=== PATIENT | female | born 1935 | race Caucasian/White ===

== ENCOUNTER 2017-10-08 21:15 | Inpatient (IN) | payer MEDICARE ==
[2017-10-08 22:05] LABS: CHLORIDE,CL 101 mEq/L (98-106); SODIUM,NA 134 mEq/L (136-145)
--- NOTE | 2017-10-08 23:19 | EDM.PDOC ---
ED HPI GENERAL MEDICAL PROBLEM - General Chief Complaint: General Stated Complaint: not feeling well Time Seen by Provider: 10/08/17 21:45 Source of Information: Reports: Patient, Family History Limitations: Reports: No Limitations - History of Present Illness INITIAL COMMENTS - FREE TEXT/NARRATIVE: Naila is a pleasant 82 year old female with PMH of hypertension and renal cancer , who presents to the ED with c/o "just not feeling well." She reports that starting on Wednesday evening, she started having worsening neck pain. She reports she has bad arthritis and initially she just attributed it to that. She reports that the days following she started to feel just achy all over. She reports that for about the past month she has had a very decreased appetite. She reports this started after she started being treated for a UTI. She reports she had a hard time tolerating the antibiotic and since then hasn't had much of an appetite. She also reports she has pain in her neck and intermittent dizziness. She has also noticed that her gait is a little "off balance as well. " She reports she has a hard time "walking straight." She denies any urinary frequency, urgency or dysuria. Denies any abdominal pain, vomiting, diarrhea, constipation. Has had some intermittent nausea, but nothing significant. She just reports foods don't appeal to her. She reports she has lost weight, but is unsure of how much. She denies any chest pain. Initially denies any shortness of breath at rest. Was pointed out to her that she seems to be winded talking and she then goes on to state that maybe she has been a little more short of breath than normal. Reports occasional nonproductive cough. Has had some chills. Denies any headache, fever, weakness. Onset Date: 10/05/17 Duration: Getting Worse Location: Reports: Generalized Associated Symptoms: Reports: Cough, Fever/Chills (chills), Loss of Appetite, Nausea/Vomiting (nausea), Shortness of Breath, Weakness. Denies: Confusion, Chest Pain, cough w sputum, Diaphoresis, Headaches, Malaise, Rash, Seizure, Syncope Generalized Pain Score (Numeric/FACES): 4 - Related Data Allergies Allergy/AdvReac Type Severity Reaction Status Date / Time Penicillins Allergy Cannot Verified 10/08/17 21:21 Remember Home Meds: Home Meds Lysine 1,000 mg PO DAILY 10/08/17 [History] Ramipril 10 mg PO DAILY 10/08/17 [History] Sertraline [Zoloft] 50 mg PO BEDTIME 10/08/17 [History] Spironolactone [Aldactone] 25 mg PO DAILY 10/08/17 [History] Past Medical History HEENT History: Reports: Cataract Cardiovascular History: Reports: Hypertension Oncologic (Cancer) History: Reports: Renal - Past Surgical History HEENT Surgical History: Reports: Cataract Surgery GI Surgical History: Reports: Appendectomy, Colonoscopy Social & Family History - Tobacco Use Smoking Status *Q: Never Smoker Second Hand Smoke Exposure: No ED ROS GENERAL - Review of Systems Review Of Systems: ROS reveals no pertinent complaints other than HPI. Constitutional: Reports: Fever, Chills, Weakness, Fatigue, Decreased Appetite, Weight Loss HEENT: Reports: No Symptoms Respiratory: Reports: Shortness of Breath, Cough. Denies: Wheezing, Pleuritic Chest Pain, Sputum, Hemoptysis Cardiovascular: Reports: Dyspnea on Exertion, Lightheadedness. Denies: Chest Pain, Edema, Orthopnea, Syncope Endocrine: Reports: Fatigue GI/Abdominal: Reports: Decreased Appetite, Nausea. Denies: Abdominal Pain, Black Stool, Bloody Stool, Constipation, Hematemesis, Hematochezia, Melena, Vomiting : Denies: Dysuria, Flank Pain, Frequency, Hematuria, Urgency Musculoskeletal: Reports: Neck Pain Skin: Reports: No Symptoms Neurological: Reports: Dizziness, Difficulty Walking, Weakness, Gait Disturbance. Denies: Confusion, Headache, Numbness, Syncope, Tingling Psychiatric: Reports: No Symptoms Hematologic/Lymphatic: Reports: No Symptoms Immunologic: Reports: No Symptoms ED EXAM, GENERAL - Physical Exam Exam: See Below Exam Limited By: No Limitations General Appearance: Alert, WD/WN, No Apparent Distress Eye Exam: Bilateral Eye: EOMI, Normal Fundi, Normal Inspection, PERRL Ears: Normal External Exam, Normal Canal, Hearing Grossly Normal, Normal TMs Nose: Normal Inspection, Normal Mucosa, No Blood Throat/Mouth: Normal Inspection, Normal Lips, Normal Teeth, Normal Gums, Normal Oropharynx, Normal Voice, No Airway Compromise Head: Atraumatic, Normocephalic Neck: Normal Inspection, Supple, Non-Tender, Full Range of Motion Respiratory/Chest: No Respiratory Distress, Lungs Clear, Normal Breath Sounds, No Accessory Muscle Use, Chest Non-Tender Cardiovascular: Normal Peripheral Pulses, Regular Rate, Rhythm, No Edema, No Gallop, No JVD, No Murmur, No Rub GI/Abdominal: Normal Bowel Sounds, Soft, Non-Tender, No Organomegaly, No Distention, No Abnormal Bruit, No Mass Back Exam: Normal Inspection, Full Range of Motion. No: CVA Tenderness (L), CVA Tenderness (R), Vertebral Tenderness Extremities: Normal Inspection, Normal Range of Motion, Non-Tender, Normal Capillary Refill, No Pedal Edema Neurological: Alert, Oriented, CN II-XII Intact, Normal Cognition, Normal Gait, Normal Reflexes, No Motor/Sensory Deficits Psychiatric: Normal Affect, Normal Mood Skin Exam: Warm, Dry, Intact, Normal Color, No Rash Lymphatic: No Adenopathy Course - Vital Signs Last Recorded V/S: Last Vital Signs Temp 97.5 F 10/09/17 03:27 Pulse 78 10/09/17 03:27 Resp 16 10/09/17 03:27 BP 136/75 10/09/17 03:27 Pulse Ox 98 10/09/17 03:27 - Orders/Labs/Meds Orders: Active Orders 24 hr Category Date Time Status Chest 2V [CR] Stat Exams 10/08/17 21:29 Taken Head wo Cont [CT] Stat Exams 10/08/17 22:17 Taken CULTURE BLOOD [BC] Stat Lab 10/08/17 21:35 Received CULTURE BLOOD [BC] Stat Lab 10/08/17 21:40 Received CULTURE URINE [RM] Stat Lab 10/08/17 22:04 Received Medication Orders Acetaminophen (Tylenol) 650 mg PO Q4H PRN PRN Reason: Pain (Mild 1-3)/fever Albuterol/Ipratropium (Duoneb 3.0-0.5 Mg/3 Ml) 3 ml NEB Q4H PRN PRN Reason: Shortness Of Breath/wheezing Ceftriaxone Sodium (Rocephin) 1 gm IVPUSH Q24H [facility] Last Admin: 10/09/17 00:26 Dose: 1 gm Enoxaparin Sodium (Lovenox) 30 mg SUBCUT Q24H [facility] Last Admin: 10/09/17 00:25 Dose: 30 mg Azithromycin 500 mg/ Sodium (Chloride) 250 mls @ 250 mls/hr IV Q24H [facility] Last Admin: 10/09/17 00:25 Dose: 250 mls/hr Lactated Ringer's (Ringers, Lactated) 1,000 mls @ 125 mls/hr IV ASDIRECTED [facility] Last Admin: 10/09/17 00:26 Dose: 125 mls/hr Magnesium Hydroxide (Milk Of Magnesia) 30 ml PO Q12H PRN PRN Reason: Constipation Temazepam (Restoril) 15 mg PO BEDTIME PRN PRN Reason: Sleep Labs: Laboratory Tests 10/08/17 10/08/17 10/08/17 Range/Units 21:35 21:35 21:35 WBC 13.8 H (5.0-10.0) 10^3/uL RBC 2.91 L (4.00-5.50) 10^6/uL Hgb 9.8 L (12.0-16.0) g/dL Hct 29.4 L (37.0-47.0) % MCV 101.0 H (82.0-94.0) fL MCH 33.7 H (27.0-32.0) pg MCHC 33.3 (33.0-38.0) g/dL RDW Coeff of Karina 13.0 (11.0-15.0) % Plt Count 130 L (150-400) 10^3/uL Neut % (Auto) 80.0 (35-85) % Lymph % (Auto) 9.7 L (10-55) % [place] % (Auto) 10.0 (0-16) % Eos % (Auto) 0.2 (0-5) % Baso % (Auto) 0.1 (0-3) % Neut # (Auto) 11.00 H (1.80-7.00) 10^3/uL Lymph # (Auto) 1.33 (1.00-4.80) 10^3/uL [place] # (Auto) 1.38 H (0.00-0.80) 10^3/uL Eos # (Auto) 0.03 (0.00-0.45) 10^3/uL Baso # (Auto) 0.01 10^3/uL D-Dimer, Quantitative (0.00-0.50) Sodium 134 L (136-145) mEq/L Potassium 3.8 (3.5-5.0) mEq/L Chloride 101 (98-106) mEq/L Carbon Dioxide 17 L (21-32) mmol/L BUN 48 H (7-18) mg/dL Creatinine 2.2 H (0.6-1.0) mg/dL Est Cr Clr Drug Dosing 16.13 mL/min Estimated GFR (MDRD) 21 L (>=60) mL/min Glucose 107 H (75-99) mg/dL Lactic Acid 0.7 (0.4-2.0) mmol/L Calcium 9.5 (8.4-10.1) mg/dL Total Bilirubin 0.5 (0.0-1.0) mg/dL AST 12 L (15-37) U/L ALT 18 (12-78) U/L Alkaline Phosphatase 64 (46-116) U/L Troponin I < 0.017 (0.00-0.06) ng/mL C-Reactive Protein 24.0 H (0.2-0.8) mg/dL Total Protein 6.6 (6.4-8.2) g/dL Albumin 3.0 L (3.4-5.0) g/dL Urine Color (YELLOW) Urine Appearance (CLEAR) Urine pH (4.5-8.0) Ur Specific Goehner (1.003-1.020) Urine Protein (NEGATIVE) mg/dL Urine Glucose (UA) (NEGATIVE) mg/dL Urine Ketones (NEGATIVE) mg/dL Urine Occult Blood (NEGATIVE) Urine Nitrite (NEGATIVE) Urine Bilirubin (NEGATIVE) Urine Urobilinogen (0.2-1.0) EU/dL Ur Leukocyte Esterase (NEGATIVE) Urine RBC (0-5) /HPF Urine WBC (0-5) /HPF Ur Squamous Epith Cells (NOT SEEN) /HPF Urine Bacteria (NOT SEEN) /HPF 10/08/17 10/08/17 Range/Units 21:35 21:53 WBC (5.0-10.0) 10^3/uL RBC (4.00-5.50) 10^6/uL Hgb (12.0-16.0) g/dL Hct (37.0-47.0) % MCV (82.0-94.0) fL MCH (27.0-32.0) pg MCHC (33.0-38.0) g/dL RDW Coeff of Karina (11.0-15.0) % Plt Count (150-400) 10^3/uL Neut % (Auto) (35-85) % Lymph % (Auto) (10-55) % [place] % (Auto) (0-16) % Eos % (Auto) (0-5) % Baso % (Auto) (0-3) % Neut # (Auto) (1.80-7.00) 10^3/uL Lymph # (Auto) (1.00-4.80) 10^3/uL [place] # (Auto) (0.00-0.80) 10^3/uL Eos # (Auto) (0.00-0.45) 10^3/uL Baso # (Auto) 10^3/uL D-Dimer, Quantitative 0.61 H (0.00-0.50) Sodium (136-145) mEq/L Potassium (3.5-5.0) mEq/L Chloride (98-106) mEq/L Carbon Dioxide (21-32) mmol/L BUN (7-18) mg/dL Creatinine (0.6-1.0) mg/dL Est Cr Clr Drug Dosing mL/min Estimated GFR (MDRD) (>=60) mL/min Glucose (75-99) mg/dL Lactic Acid (0.4-2.0) mmol/L Calcium (8.4-10.1) mg/dL Total Bilirubin (0.0-1.0) mg/dL AST (15-37) U/L ALT (12-78) U/L Alkaline Phosphatase (46-116) U/L Troponin I (0.00-0.06) ng/mL C-Reactive Protein (0.2-0.8) mg/dL Total Protein (6.4-8.2) g/dL Albumin (3.4-5.0) g/dL Urine Color Yellow (YELLOW) Urine Appearance Clear (CLEAR) Urine pH 5.5 (4.5-8.0) Ur Specific Goehner 1.015 (1.003-1.020) Urine Protein 100 H (NEGATIVE) mg/dL Urine Glucose (UA) Negative (NEGATIVE) mg/dL Urine Ketones Negative (NEGATIVE) mg/dL Urine Occult Blood Negative (NEGATIVE) Urine Nitrite Negative (NEGATIVE) Urine Bilirubin Negative (NEGATIVE) Urine Urobilinogen 0.2 (0.2-1.0) EU/dL Ur Leukocyte Esterase Moderate H (NEGATIVE) Urine RBC Not seen (0-5) /HPF Urine WBC 30-40 H (0-5) /HPF Ur Squamous Epith Cells Few H (NOT SEEN) /HPF Urine Bacteria Few H (NOT SEEN) /HPF Meds: Medications Generic Name Dose Route Start Last Admin Trade Name Freq PRN Reason Stop Dose Admin Acetaminophen 650 mg 10/08/17 23:27 Tylenol PO Q4H PRN Pain (Mild 1-3)/fever Albuterol/Ipratropium 3 ml 10/08/17 23:27 Duoneb 3.0-0.5 Mg/3 Ml NEB Q4H PRN Shortness Of Breath/wheezing Ceftriaxone Sodium 1 gm 10/09/17 00:00 10/09/17 00:26 Rocephin IVPUSH 1 gm Q24H [facility] Administration Enoxaparin Sodium 30 mg 10/08/17 23:00 10/09/17 00:25 Lovenox SUBCUT 30 mg Q24H [facility] Administration Azithromycin 500 mg/ Sodium 250 mls @ 250 mls/hr 10/08/17 23:00 10/09/17 00: 25 Chloride IV 250 mls/hr Q24H [facility] Administration Lactated Ringer's 1,000 mls @ 125 mls/hr 10/08/17 23:27 10/09/17 00:26 Ringers, Lactated IV 125 mls/hr ASDIRECTED [facility] Administration Magnesium Hydroxide 30 ml 10/08/17 23:27 Milk Of Magnesia PO Q12H PRN Constipation Temazepam 15 mg 10/08/17 23:27 Restoril PO BEDTIME PRN Sleep - Re-Assessments/Exams Free Text/Narrative Re-Assessment/Exam: Reviewed labs, EKG, and CXR with patient and family. Departure - Departure Time of Disposition: 23:22 Disposition: Admitted As Inpatient 68 Condition: Fair Clinical Impression: UTI (urinary tract infection) Qualifiers: Urinary tract infection type: site unspecified Hematuria presence: without hematuria Qualified Code(s): N39.0 - Urinary tract infection, site not specified - Discharge Information - Problem List & Annotations (1) Anemia SNOMED Code(s): 575418167 Code(s): D64.9 - ANEMIA, UNSPECIFIED Status: Chronic Current Visit: Yes Qualifiers: Anemia type: unspecified type Qualified Code(s): D64.9 - Anemia, unspecified (2) Renal insufficiency SNOMED Code(s): 341551645, 635128365 Code(s): N28.9 - DISORDER OF KIDNEY AND URETER, UNSPECIFIED Status: Acute Current Visit: Yes (3) UTI (urinary tract infection) SNOMED Code(s): 11315568 Code(s): N39.0 - URINARY TRACT INFECTION, SITE NOT SPECIFIED Status: Acute Current Visit: Yes Qualifiers: Urinary tract infection type: site unspecified Hematuria presence: without hematuria Qualified Code(s): N39.0 - Urinary tract infection, site not specified (4) Mass of right lung SNOMED Code(s): 736992771 Code(s): R91.8 - OTHER NONSPECIFIC ABNORMAL FINDING OF LUNG FIELD Status: Chronic Priority: High Current Visit: Yes - Problem List Review Problem List Initiated/Reviewed/Updated: Yes - My Orders Last 24 Hours: My Active Orders 10/08/17 21:29 Chest 2V [CR] Stat 10/08/17 21:35 CULTURE BLOOD [BC] Stat 10/08/17 21:40 CULTURE BLOOD [BC] Stat 10/08/17 22:04 CULTURE URINE [RM] Stat 10/08/17 22:17 Head wo Cont [CT] Stat - Assessment/Plan Admission H&P: Please use this note as an admission H&P Last 24 Hours: My Active Orders 10/08/17 21:29 Chest 2V [CR] Stat 10/08/17 21:35 CULTURE BLOOD [BC] Stat 10/08/17 21:40 CULTURE BLOOD [BC] Stat 10/08/17 22:04 CULTURE URINE [RM] Stat 10/08/17 22:17 Head wo Cont [CT] Stat Plan: Patients WBC elevated to 13.4. CRP 24. D-dimer 0.61. CXR concerning for RML pneumonia vs. lung mass. Radiologist feels this is more of a lung mass rather than pneumonia. He recommends further imaging with MRI. UA positive. Will get urine culture. Will start IV rocephin and azithromycin to cover both possible RML pneumonia and UTI. Creatinine 2.2. Will give gentle IV hydration. Unable to do CT with contrast until kidney function improves. Hgb 9.8. Will check iron panel, vitamin B12, and folic acid in am. Head CT negative. I discussed at length with family concern for lung mass. We will admit acute with telemetry to Dr. guardado and reassess kidney function in am and options for further imaging. Family and patient agreeable with plan at this time.
[2017-10-08] MEDS ORDERED: Temazepam 15 MG Cap PO PRN (23:27)
[2017-10-08] MEDS ORDERED: Magnesium Hydroxide 400 MG/5 ML Susp 30 ML Cup PO PRN (23:27)
[2017-10-08] MEDS ORDERED: Albuterol/Ipratropium 3.0-0.5 MG/3 ML Neb Soln NEB PRN (23:27)
[2017-10-09] MEDS: Azithromycin 500 MG in Sodium Chloride 0.9% 250 ML IV SCH ×2 (00:25→23:00)
[2017-10-09] MEDS: Enoxaparin 30 MG/0.3 ML Syringe SUBCUT SCH ×2 (00:25→23:00)
[2017-10-09] MEDS: cefTRIAXone 1 GM Vial IVPUSH SCH (00:26)
[2017-10-09] MEDS: Lactated Ringers 1,000 ML IV SCH ×4 (00:26→19:36)
--- NOTE | 2017-10-09 09:23 | PCM.PN ---
- General Info Date of Service: 10/09/17 Admission Dx/Problem (Free Text): Right lung Mass UTI Renal Insufficiency- s/p nephrectomy Anemia Subjective Update: Patient reports she is feeling much better this morning. She reports she feels like she has some energy back. Functional Status: Reports: Pain Controlled, Tolerating Diet, Ambulating, Urinating. Denies: New Symptoms Pain Score: 0 - Review of Systems General: Reports: Weakness, Fatigue. Denies: Fever, Chills HEENT: Reports: No Symptoms Pulmonary: Reports: Cough. Denies: Shortness of Breath, Pleuritic Chest Pain, Sputum, Hemoptysis, Wheezing Cardiovascular: Reports: No Symptoms. Denies: Chest Pain, Dyspnea on Exertion, Orthopnea, Edema, Lightheadedness Gastrointestinal: Reports: Decreased Appetite. Denies: Abdominal Pain, Diarrhea , Nausea, Vomiting Genitourinary: Reports: Frequency. Denies: Dysuria, Urgency, Hematuria, Flank Pain Musculoskeletal: Reports: No Symptoms Skin: Reports: No Symptoms Neurological: Reports: Weakness. Denies: Confusion, Dizziness, Headache, Numbness, Syncope, Tingling Psychiatric: Reports: No Symptoms - Patient Data Vitals - Most Recent: Last Vital Signs Temp 97.1 F 10/09/17 07:36 Pulse 81 10/09/17 07:36 Resp 16 10/09/17 07:36 BP 134/67 10/09/17 07:36 Pulse Ox 99 10/09/17 07:36 Weight - Most Recent: 120 lb 8 oz I&O - Last 24 Hours: Intake & Output 10/08/17 10/09/17 10/09/17 22:59 06:59 14:59 Intake Total 50 1000 Balance 50 1000 Lab Results Last 24 Hours: Laboratory Results - last 24 hr 10/08/17 10/08/17 10/08/17 Range/Units 21:35 21:35 21:35 WBC 13.8 H (5.0-10.0) 10^3/uL RBC 2.91 L (4.00-5.50) 10^6/uL Hgb 9.8 L (12.0-16.0) g/dL Hct 29.4 L (37.0-47.0) % MCV 101.0 H (82.0-94.0) fL MCH 33.7 H (27.0-32.0) pg MCHC 33.3 (33.0-38.0) g/dL RDW Coeff of Karina 13.0 (11.0-15.0) % Plt Count 130 L (150-400) 10^3/uL Neut % (Auto) 80.0 (35-85) % Lymph % (Auto) 9.7 L (10-55) % [place] % (Auto) 10.0 (0-16) % Eos % (Auto) 0.2 (0-5) % Baso % (Auto) 0.1 (0-3) % Neut # (Auto) 11.00 H (1.80-7.00) 10^3/uL Lymph # (Auto) 1.33 (1.00-4.80) 10^3/uL [place] # (Auto) 1.38 H (0.00-0.80) 10^3/uL Eos # (Auto) 0.03 (0.00-0.45) 10^3/uL Baso # (Auto) 0.01 10^3/uL ESR (0-20) mm/hr D-Dimer, Quantitative (0.00-0.50) Sodium 134 L (136-145) mEq/L Potassium 3.8 (3.5-5.0) mEq/L Chloride 101 (98-106) mEq/L Carbon Dioxide 17 L (21-32) mmol/L BUN 48 H (7-18) mg/dL Creatinine 2.2 H (0.6-1.0) mg/dL Est Cr Clr Drug Dosing 16.13 mL/min Estimated GFR (MDRD) 21 L (>=60) mL/min Glucose 107 H (75-99) mg/dL Lactic Acid 0.7 (0.4-2.0) mmol/L Calcium 9.5 (8.4-10.1) mg/dL Magnesium (1.8-2.4) mg/dL Total Bilirubin 0.5 (0.0-1.0) mg/dL AST 12 L (15-37) U/L ALT 18 (12-78) U/L Alkaline Phosphatase 64 (46-116) U/L Troponin I < 0.017 (0.00-0.06) ng/mL C-Reactive Protein 24.0 H (0.2-0.8) mg/dL Total Protein 6.6 (6.4-8.2) g/dL Albumin 3.0 L (3.4-5.0) g/dL Vitamin B12 (193-986) PG/ML Folate (>8.6) NG/ML Urine Color (YELLOW) Urine Appearance (CLEAR) Urine pH (4.5-8.0) Ur Specific [place] (1.003-1.020) Urine Protein (NEGATIVE) mg/dL Urine Glucose (UA) (NEGATIVE) mg/dL Urine Ketones (NEGATIVE) mg/dL Urine Occult Blood (NEGATIVE) Urine Nitrite (NEGATIVE) Urine Bilirubin (NEGATIVE) Urine Urobilinogen (0.2-1.0) EU/dL Ur Leukocyte Esterase (NEGATIVE) Urine RBC (0-5) /HPF Urine WBC (0-5) /HPF Ur Squamous Epith Cells (NOT SEEN) /HPF Urine Bacteria (NOT SEEN) /HPF 10/08/17 10/08/17 10/09/17 Range/Units 21:35 21:53 07:24 WBC (5.0-10.0) 10^3/uL RBC (4.00-5.50) 10^6/uL Hgb (12.0-16.0) g/dL Hct (37.0-47.0) % MCV (82.0-94.0) fL MCH (27.0-32.0) pg MCHC (33.0-38.0) g/dL RDW Coeff of Karina (11.0-15.0) % Plt Count (150-400) 10^3/uL Neut % (Auto) (35-85) % Lymph % (Auto) (10-55) % [place] % (Auto) (0-16) % Eos % (Auto) (0-5) % Baso % (Auto) (0-3) % Neut # (Auto) (1.80-7.00) 10^3/uL Lymph # (Auto) (1.00-4.80) 10^3/uL [place] # (Auto) (0.00-0.80) 10^3/uL Eos # (Auto) (0.00-0.45) 10^3/uL Baso # (Auto) 10^3/uL ESR (0-20) mm/hr D-Dimer, Quantitative 0.61 H (0.00-0.50) Sodium (136-145) mEq/L Potassium (3.5-5.0) mEq/L Chloride (98-106) mEq/L Carbon Dioxide (21-32) mmol/L BUN (7-18) mg/dL Creatinine (0.6-1.0) mg/dL Est Cr Clr Drug Dosing mL/min Estimated GFR (MDRD) (>=60) mL/min Glucose (75-99) mg/dL Lactic Acid (0.4-2.0) mmol/L Calcium (8.4-10.1) mg/dL Magnesium 1.9 (1.8-2.4) mg/dL Total Bilirubin (0.0-1.0) mg/dL AST (15-37) U/L ALT (12-78) U/L Alkaline Phosphatase (46-116) U/L Troponin I (0.00-0.06) ng/mL C-Reactive Protein (0.2-0.8) mg/dL Total Protein (6.4-8.2) g/dL Albumin (3.4-5.0) g/dL Vitamin B12 (193-986) PG/ML Folate (>8.6) NG/ML Urine Color Yellow (YELLOW) Urine Appearance Clear (CLEAR) Urine pH 5.5 (4.5-8.0) Ur Specific [place] 1.015 (1.003-1.020) Urine Protein 100 H (NEGATIVE) mg/dL Urine Glucose (UA) Negative (NEGATIVE) mg/dL Urine Ketones Negative (NEGATIVE) mg/dL Urine Occult Blood Negative (NEGATIVE) Urine Nitrite Negative (NEGATIVE) Urine Bilirubin Negative (NEGATIVE) Urine Urobilinogen 0.2 (0.2-1.0) EU/dL Ur Leukocyte Esterase Moderate H (NEGATIVE) Urine RBC Not seen (0-5) /HPF Urine WBC 30-40 H (0-5) /HPF Ur Squamous Epith Cells Few H (NOT SEEN) /HPF Urine Bacteria Few H (NOT SEEN) /HPF 10/09/17 10/09/17 Range/Units 07:24 07:24 WBC 10.9 H (5.0-10.0) 10^3/uL RBC 2.71 L (4.00-5.50) 10^6/uL Hgb 9.1 L (12.0-16.0) g/dL Hct 27.8 L (37.0-47.0) % MCV 102.6 H (82.0-94.0) fL MCH 33.6 H (27.0-32.0) pg MCHC 32.7 L (33.0-38.0) g/dL RDW Coeff of Karina 12.8 (11.0-15.0) % Plt Count 127 L (150-400) 10^3/uL Neut % (Auto) 75.4 (35-85) % Lymph % (Auto) 14.1 (10-55) % [place] % (Auto) 9.8 (0-16) % Eos % (Auto) 0.6 (0-5) % Baso % (Auto) 0.1 (0-3) % Neut # (Auto) 8.21 H (1.80-7.00) 10^3/uL Lymph # (Auto) 1.53 (1.00-4.80) 10^3/uL [place] # (Auto) 1.06 H (0.00-0.80) 10^3/uL Eos # (Auto) 0.06 (0.00-0.45) 10^3/uL Baso # (Auto) 0.01 10^3/uL ESR 80 H (0-20) mm/hr D-Dimer, Quantitative (0.00-0.50) Sodium 139 (136-145) mEq/L Potassium 3.7 (3.5-5.0) mEq/L Chloride 106 (98-106) mEq/L Carbon Dioxide 19 L (21-32) mmol/L BUN 46 H (7-18) mg/dL Creatinine 2.0 H (0.6-1.0) mg/dL Est Cr Clr Drug Dosing 17.74 mL/min Estimated GFR (MDRD) 24 L (>=60) mL/min Glucose 90 (75-99) mg/dL Lactic Acid (0.4-2.0) mmol/L Calcium 9.3 (8.4-10.1) mg/dL Magnesium (1.8-2.4) mg/dL Total Bilirubin (0.0-1.0) mg/dL AST (15-37) U/L ALT (12-78) U/L Alkaline Phosphatase (46-116) U/L Troponin I (0.00-0.06) ng/mL C-Reactive Protein 30.4 H (0.2-0.8) mg/dL Total Protein (6.4-8.2) g/dL Albumin (3.4-5.0) g/dL Vitamin B12 700 (193-986) PG/ML Folate 14.2 (>8.6) NG/ML Urine Color (YELLOW) Urine Appearance (CLEAR) Urine pH (4.5-8.0) Ur Specific [place] (1.003-1.020) Urine Protein (NEGATIVE) mg/dL Urine Glucose (UA) (NEGATIVE) mg/dL Urine Ketones (NEGATIVE) mg/dL Urine Occult Blood (NEGATIVE) Urine Nitrite (NEGATIVE) Urine Bilirubin (NEGATIVE) Urine Urobilinogen (0.2-1.0) EU/dL Ur Leukocyte Esterase (NEGATIVE) Urine RBC (0-5) /HPF Urine WBC (0-5) /HPF Ur Squamous Epith Cells (NOT SEEN) /HPF Urine Bacteria (NOT SEEN) /HPF Elio Results Last 24 Hours: Microbiology 10/08/17 22:04 Urine Culture - Preliminary Urine, Clean Catch 10/08/17 21:40 Influenza Type A Antigen Screen - Final Nasal, Unspecified NEGATIVE INFLUENZA A VIRUS AG Influenza Type B Antigen Screen - Final NEGATIVE INFLUENZA B VIRUS AG Med Orders - Current: Current Medications Acetaminophen (Tylenol) 650 mg PO Q4H PRN PRN Reason: Pain (Mild 1-3)/fever Albuterol/Ipratropium (Duoneb 3.0-0.5 Mg/3 Ml) 3 ml NEB Q4H PRN PRN Reason: Shortness Of Breath/wheezing Ceftriaxone Sodium (Rocephin) 1 gm IVPUSH Q24H [facility] Last Admin: 10/09/17 00:26 Dose: 1 gm Enoxaparin Sodium (Lovenox) 30 mg SUBCUT Q24H [facility] Last Admin: 10/09/17 00:25 Dose: 30 mg Azithromycin 500 mg/ Sodium (Chloride) 250 mls @ 250 mls/hr IV Q24H [facility] Last Admin: 10/09/17 00:25 Dose: 250 mls/hr Lactated Ringer's (Ringers, Lactated) 1,000 mls @ 125 mls/hr IV ASDIRECTED [facility] Last Admin: 10/09/17 09:14 Dose: 125 mls/hr Magnesium Hydroxide (Milk Of Magnesia) 30 ml PO Q12H PRN PRN Reason: Constipation Temazepam (Restoril) 15 mg PO BEDTIME PRN PRN Reason: Sleep - Exam Quality Assessment: DVT Prophylaxis General: Alert, Oriented, No Acute Distress Neck: Supple Lungs: Clear to Auscultation, Normal Respiratory Effort Cardiovascular: Regular Rate, Regular Rhythm, No Murmurs GI/Abdominal Exam: Normal Bowel Sounds, Soft, Non-Tender, No Organomegaly, No Distention, No Abnormal Bruit, No Mass, Pelvis Stable Back Exam: Normal Inspection, Full Range of Motion. No: CVA Tenderness (L), CVA Tenderness (R) Extremities: Normal Inspection, Normal Range of Motion, Non-Tender, No Pedal Edema, Normal Capillary Refill Skin: Warm, Dry, Intact Neurological: No New Focal Deficit Psy/Mental Status: Alert, Normal Affect, Normal Mood - Problem List & Annotations (1) Mass of right lung SNOMED Code(s): 472311281 Code(s): R91.8 - OTHER NONSPECIFIC ABNORMAL FINDING OF LUNG FIELD Status: Chronic Priority: High Current Visit: Yes (2) Anemia SNOMED Code(s): 125037871 Code(s): D64.9 - ANEMIA, UNSPECIFIED Status: Chronic Current Visit: Yes Qualifiers: Anemia type: unspecified type Qualified Code(s): D64.9 - Anemia, unspecified (3) Renal insufficiency SNOMED Code(s): 088167972, 022983585 Code(s): N28.9 - DISORDER OF KIDNEY AND URETER, UNSPECIFIED Status: Acute Current Visit: Yes (4) UTI (urinary tract infection) SNOMED Code(s): 34371245 Code(s): N39.0 - URINARY TRACT INFECTION, SITE NOT SPECIFIED Status: Acute Current Visit: Yes Qualifiers: Urinary tract infection type: site unspecified Hematuria presence: without hematuria Qualified Code(s): N39.0 - Urinary tract infection, site not specified - Problem List Review Problem List Initiated/Reviewed/Updated: Yes - My Orders Last 24 Hours: My Active Orders 10/08/17 21:29 Chest 2V [CR] Stat 10/08/17 21:35 CULTURE BLOOD [BC] Stat 10/08/17 21:40 CULTURE BLOOD [BC] Stat 10/08/17 22:04 CULTURE URINE [RM] Stat 10/08/17 22:17 Head wo Cont [CT] Stat 10/08/17 22:59 Resuscitation Status Routine 10/08/17 23:00 Azithromycin [Zithromax] 500 mg Sodium Chloride 0.9% [Normal Saline] 250 ml IV Q24H Enoxaparin [Lovenox] 30 mg SUBCUT Q24H 10/08/17 23:27 Patient Status [ADT] Routine Cardiac Monitoring [RC] 0800,2000 Intake and Output [RC] 0600,1800 Oxygen Therapy [RC] .PRN RT Aerosol Therapy [RC] .PRN Up With Assistance [RC] .PRN Vital Signs [RC] 0000,0400,0800,1200,1600,2000 CULTURE SPUTUM + SMEAR [RM] Stat Acetaminophen [Tylenol] 650 mg PO Q4H PRN Albuterol/Ipratropium [DuoNeb 3.0-0.5 MG/3 ML] 3 ml NEB Q4H PRN Lactated Ringers [Ringers, Lactated] 1,000 ml IV ASDIRECTED Magnesium Hydroxide [Milk of Magnesia] 30 ml PO Q12H PRN Temazepam [Restoril] 15 mg PO BEDTIME PRN 10/09/17 00:00 cefTRIAXone [Rocephin] 1 gm IVPUSH Q24H 10/09/17 07:24 IRON PNL (FE, TIBC, NIKOLAY, %SAT) [REF] Routine 10/10/17 06:00 BASIC METABOLIC PANEL,BMP [CHEM] DAILY C-REACTIVE PROTEIN [CHEM] DAILY CBC WITH AUTO DIFF [HEME] DAILY 10/11/17 06:00 BASIC METABOLIC PANEL,BMP [CHEM] DAILY C-REACTIVE PROTEIN [CHEM] DAILY CBC WITH AUTO DIFF [HEME] DAILY - Assessment Assessment:: UTI Right lung mass Renal Insufficiency s/p hx of nephrectomy anemia - Plan Plan:: Contacted [facility] to discuss case with pulmonoligist. They recommend contacting [facility] Wednesday morning to discuss bronchoscopy. Creatinine improved to 2.0 from 2.2. Na normal today. Hgb stable at 9.1. Vitamin B12 and folic acid normal. Awaiting iron panel. Will start ferrous sulfate. Patient reports she is feeling much better. Preliminary urine culture negative at 8 hours. WBC improved from 13.8 to 10.9. CRP did increase from 24 to 30.4. Will continue both azithromycin and rocephin. Will recheck chest Xray tomorrow to see if there is possibly any change in suspected right lung mass. Sed rate significantly elevated at 80. Lung mass very suspicious for carcinoma. Patient and family agree with plan.
[2017-10-09] MEDS: Spironolactone 25 MG Tab PO SCH (09:58)
[2017-10-09] MEDS: LYSINE 500 MG PO SCH (09:58)
[2017-10-09] MEDS: Lisinopril 20 MG Tab PO SCH (09:58)
[2017-10-09] MEDS: Acetaminophen 325 MG Tab PO PRN (12:55)
[2017-10-09] MEDS: Sertraline 25 MG Tab PO SCH (19:36)
[2017-10-10] MEDS: cefTRIAXone 1 GM Vial IVPUSH SCH
[2017-10-10] MEDS: Azithromycin 500 MG in Sodium Chloride 0.9% 250 ML IV SCH (00:30)
[2017-10-10] MEDS: Acetaminophen 325 MG Tab PO PRN (02:04)
[2017-10-10] MEDS: LYSINE 500 MG PO SCH (07:33)
[2017-10-10] MEDS: Spironolactone 25 MG Tab PO SCH (07:34)
[2017-10-10] MEDS: Lisinopril 20 MG Tab PO SCH (07:35)
--- NOTE | 2017-10-10 10:00 | PCM.PN ---
- General Info Date of Service: 10/10/17 Admission Dx/Problem (Free Text): Right lung Mass UTI Renal Insufficiency- s/p nephrectomy Anemia Subjective Update: Patient reports she is feeling well today. She reports she has been up ambulating in the [place] some. Reports her appetite has improved. She still is eating small amounts, but reports she is no longer nauseated with foods. She denies any pain. Denies any cough or shortness of breath. She has had a couple loose stools over the past 24 hours. She otherwise has no complaints. Functional Status: Reports: Pain Controlled, Tolerating Diet, Ambulating, Urinating. Denies: New Symptoms - Review of Systems General: Denies: Fever, Weakness, Fatigue, Chills HEENT: Reports: No Symptoms Pulmonary: Reports: No Symptoms. Denies: Shortness of Breath, Pleuritic Chest Pain, Cough, Sputum, Wheezing Cardiovascular: Reports: No Symptoms. Denies: Chest Pain, Dyspnea on Exertion, Edema, Lightheadedness Gastrointestinal: Reports: Decreased Appetite, Diarrhea. Denies: Abdominal Pain , Hematochezia, Melena, Nausea, Vomiting Genitourinary: Reports: No Symptoms. Denies: Dysuria, Frequency, Urgency Musculoskeletal: Reports: Neck Pain Skin: Reports: No Symptoms Neurological: Reports: No Symptoms. Denies: Confusion, Dizziness, Difficulty Walking, Weakness Psychiatric: Reports: No Symptoms - Patient Data Vitals - Most Recent: Last Vital Signs Temp 98.4 F 10/10/17 03:52 Pulse 75 10/10/17 03:52 Resp 14 10/10/17 03:52 BP 141/69 H 10/10/17 03:52 Pulse Ox 96 10/10/17 03:52 Weight - Most Recent: 120 lb 8 oz I&O - Last 24 Hours: Intake & Output 10/09/17 10/10/17 10/10/17 22:59 06:59 14:59 Intake Total 1648 150 Output Total 400 Balance 1248 150 Lab Results Last 24 Hours: Laboratory Results - last 24 hr 10/10/17 10/10/17 Range/Units 07:02 07:02 WBC 6.8 (5.0-10.0) 10^3/uL RBC 2.53 L (4.00-5.50) 10^6/uL Hgb 8.6 L (12.0-16.0) g/dL Hct 26.2 L (37.0-47.0) % MCV 103.6 H (82.0-94.0) fL MCH 34.0 H (27.0-32.0) pg MCHC 32.8 L (33.0-38.0) g/dL RDW Coeff of Karina 12.9 (11.0-15.0) % Plt Count 133 L (150-400) 10^3/uL Neut % (Auto) 64.8 (35-85) % Lymph % (Auto) 22.2 (10-55) % [place] % (Auto) 10.6 (0-16) % Eos % (Auto) 2.1 (0-5) % Baso % (Auto) 0.3 (0-3) % Neut # (Auto) 4.39 (1.80-7.00) 10^3/uL Lymph # (Auto) 1.50 (1.00-4.80) 10^3/uL [place] # (Auto) 0.72 (0.00-0.80) 10^3/uL Eos # (Auto) 0.14 (0.00-0.45) 10^3/uL Baso # (Auto) 0.02 10^3/uL Sodium 142 (136-145) mEq/L Potassium 3.8 (3.5-5.0) mEq/L Chloride 109 H (98-106) mEq/L Carbon Dioxide 21 (21-32) mmol/L BUN 36 H (7-18) mg/dL Creatinine 1.7 H (0.6-1.0) mg/dL Est Cr Clr Drug Dosing 20.87 mL/min Estimated GFR (MDRD) 29 L (>=60) mL/min Glucose 90 (75-99) mg/dL Calcium 8.8 (8.4-10.1) mg/dL C-Reactive Protein 11.8 H (0.2-0.8) mg/dL Elio Results Last 24 Hours: Microbiology 10/08/17 22:04 Urine Culture - Preliminary Urine, Clean Catch 10/08/17 21:40 Aerobic Blood Culture - Preliminary Blood - Venous - Lab Draw Anaerobic Blood Culture - Preliminary 10/08/17 21:35 Aerobic Blood Culture - Preliminary Blood - Venous Anaerobic Blood Culture - Preliminary Med Orders - Current: Current Medications Acetaminophen (Tylenol) 650 mg PO Q4H PRN PRN Reason: Pain (Mild 1-3)/fever Last Admin: 10/10/17 02:04 Dose: 650 mg Albuterol/Ipratropium (Duoneb 3.0-0.5 Mg/3 Ml) 3 ml NEB Q4H PRN PRN Reason: Shortness Of Breath/wheezing Ceftriaxone Sodium (Rocephin) 1 gm IVPUSH Q24H [facility] Last Admin: 10/10/17 00:00 Dose: 1 gm Enoxaparin Sodium (Lovenox) 30 mg SUBCUT Q24H [facility] Last Admin: 10/09/17 23:00 Dose: 30 mg Azithromycin 500 mg/ Sodium (Chloride) 250 mls @ 250 mls/hr IV Q24H [facility] Last Admin: 10/09/17 23:00 Dose: 250 mls/hr Lactated Ringer's (Ringers, Lactated) 1,000 mls @ 75 mls/hr IV ASDIRECTED [facility] Last Admin: 10/09/17 19:36 Dose: 125 mls/hr Lisinopril (Prinivil) 20 mg PO DAILY [facility] Last Admin: 10/10/17 07:35 Dose: 20 mg Magnesium Hydroxide (Milk Of Magnesia) 30 ml PO Q12H PRN PRN Reason: Constipation (Lysine [Lysine] (500mgOwn Med) 1,000 mg PO DAILY [facility] Last Admin: 10/10/17 07:33 Dose: 1,000 mg Sertraline HCl (Zoloft) 50 mg PO BEDTIME [facility] Last Admin: 10/09/17 19:36 Dose: 50 mg Spironolactone (Aldactone) 25 mg PO DAILY [facility] Last Admin: 10/10/17 07:34 Dose: 25 mg Temazepam (Restoril) 15 mg PO BEDTIME PRN PRN Reason: Sleep - Exam Quality Assessment: DVT Prophylaxis General: Alert, Oriented, No Acute Distress Neck: Supple Lungs: Clear to Auscultation, Normal Respiratory Effort, Other (slightly coarser breath sounds to RML) Cardiovascular: Regular Rate, Regular Rhythm GI/Abdominal Exam: Normal Bowel Sounds, Soft, Non-Tender, No Organomegaly, No Distention, No Abnormal Bruit, No Mass, Pelvis Stable Extremities: Normal Inspection, Normal Range of Motion, Non-Tender, No Pedal Edema, Normal Capillary Refill Skin: Warm, Dry, Intact Neurological: No New Focal Deficit Psy/Mental Status: Alert, Normal Affect, Normal Mood - Problem List & Annotations (1) Mass of right lung SNOMED Code(s): 073074646 Code(s): R91.8 - OTHER NONSPECIFIC ABNORMAL FINDING OF LUNG FIELD Status: Chronic Priority: High Current Visit: Yes (2) Anemia SNOMED Code(s): 345620597 Code(s): D64.9 - ANEMIA, UNSPECIFIED Status: Chronic Current Visit: Yes Qualifiers: Anemia type: unspecified type Qualified Code(s): D64.9 - Anemia, unspecified (3) Renal insufficiency SNOMED Code(s): 497534611, 552369430 Code(s): N28.9 - DISORDER OF KIDNEY AND URETER, UNSPECIFIED Status: Acute Current Visit: Yes (4) UTI (urinary tract infection) SNOMED Code(s): 58988576 Code(s): N39.0 - URINARY TRACT INFECTION, SITE NOT SPECIFIED Status: Acute Current Visit: Yes Qualifiers: Urinary tract infection type: site unspecified Hematuria presence: without hematuria Qualified Code(s): N39.0 - Urinary tract infection, site not specified (5) Sepsis SNOMED Code(s): 79122812 Code(s): A41.9 - SEPSIS, UNSPECIFIED ORGANISM Status: Acute Current Visit : Yes Qualifiers: Sepsis type: sepsis due to unspecified organism Qualified Code(s): A41.9 - Sepsis, unspecified organism - Problem List Review Problem List Initiated/Reviewed/Updated: Yes - My Orders Last 24 Hours: My Active Orders 10/09/17 09:45 Lisinopril [Prinivil] 20 mg PO DAILY Lysine [Lysine] 1,000 mg PO DAILY Spironolactone [Aldactone] 25 mg PO DAILY 10/09/17 20:00 Sertraline [Zoloft] 50 mg PO BEDTIME 10/10/17 12:00 Chest 2V [CR] Routine 10/11/17 06:00 BASIC METABOLIC PANEL,BMP [CHEM] DAILY C-REACTIVE PROTEIN [CHEM] DAILY CBC WITH AUTO DIFF [HEME] DAILY - Assessment Assessment:: Urosepsis Right lung mass Renal Insufficiency s/p hx of nephrectomy anemia - Plan Plan:: 10/09/2017 Contacted [facility] to discuss case with pulmonoligist. They recommend contacting [facility] Wednesday morning to discuss bronchoscopy. Creatinine improved to 2.0 from 2.2. Na normal today. Hgb stable at 9.1. Vitamin B12 and folic acid normal. Awaiting iron panel. Will start ferrous sulfate. Patient reports she is feeling much better. Preliminary urine culture negative at 8 hours. WBC improved from 13.8 to 10.9. CRP did increase from 24 to 30.4. Will continue both azithromycin and rocephin. Will recheck chest Xray tomorrow to see if there is possibly any change in suspected right lung mass. Sed rate significantly elevated at 80. Lung mass very suspicious for carcinoma. Patient and family agree with plan. 10/10/2017 Patient doing much better today. She has been afebrile. She reports her appetite is better and she has more energy. She does report she has had a few loose stools over the past 24 hours. Denies any pain. WBC improved to 6.8. CRP down to 11.8 from 30.4 yesterday. Preliminary blood cultures are positive. Preliminary urine culture shows mixed contamination. Given patient's improvement on current antibiotic regimen, we will continue this and wait for final culture reports. Creatinine improved from 2.0 to 1.7. Will continue IVF, but slow rate to 75 mL/ hr. Discussed with family that in order to do any imaging with contrast dye we need creatinine < 1.5. Will hold off on imaging and wait until we are able to do CT scan. Patient reports she has had "arthritis pain" in her neck for quite some time. That is her only c/o pain. Family and patient decline imaging at this time given chronicity of complaint. Patient and family agreeable with plan.
[2017-10-10] MEDS: Lactated Ringers 1,000 ML IV SCH ×2 (10:14→19:57)
[2017-10-10] MEDS: Sertraline 25 MG Tab PO SCH (19:57)
[2017-10-10] MEDS: Enoxaparin 30 MG/0.3 ML Syringe SUBCUT SCH (23:30)
[2017-10-11] MEDS: cefTRIAXone 1 GM Vial IVPUSH SCH (00:30)
[2017-10-11] MEDS: Acetaminophen 325 MG Tab PO PRN (02:21)
[2017-10-11] MEDS: LYSINE 500 MG PO SCH (08:10)
[2017-10-11] MEDS: Spironolactone 25 MG Tab PO SCH (08:11)
[2017-10-11] MEDS: Ferrous Sulfate 324 MG Tab.EC PO SCH (08:11)
[2017-10-11] MEDS: Lisinopril 20 MG Tab PO SCH (08:11)
[2017-10-11] MEDS: Pantoprazole 40 MG Vial IVPUSH SCH (10:02)
--- NOTE | 2017-10-11 10:18 | PN ---
DATE: 10/11/2017 S: Ms. Izaguirre was admitted for UTI and possible sepsis and looks like primary urine culture is negative. We are still waiting on identification of a positive blood culture. She has shown clinical improvement since admission with resolution of her elevated white count. CRP is trending down and she has been afebrile. Since the time of admission, she does have a right-sided lung lesion. She has been having some ongoing issues apparently over the last months with weight loss and poor appetite, very concerning given this lung lesion. She does not admit to any acute distress today, still not very hungry and having poor appetite. PHYSICAL EXAMINATION: GENERAL: She is a pleasant, alert, and cooperative. HEENT: Grossly benign. No cervical or supraclavicular adenopathy felt. LUNGS: Sounds are slightly diminished, but otherwise clear. CARDIAC: Tones are regular. ABDOMEN: Soft, appears nontender. We can not elicit any discomfort in the mid epigastric area. EXTREMITIES: No peripheral edema seen. ASSESSMENT: 1. SEPSIS WITH POSITIVE BLOOD CULTURES. ID PENDING. 2. URINARY TRACT INFECTION. 3. RIGHT LUNG MASS. 4. WEIGHT LOSS WITH POOR APPETITE. P: I am going to get a CT of the patient's chest, abdomen, and pelvis without IV contrast oral only. We will continue with current IV fluids and appropriate antibiotics until ID of the blood culture. The patient will likely be stable for discharge tomorrow. REJI/JAIME /[id number]
[2017-10-11] MEDS: Lactated Ringers 1,000 ML IV SCH (15:15)
[2017-10-11] MEDS ORDERED: Azithromycin 500 MG in Sodium Chloride 0.9% 250 ML IV SCH (20:00)
[2017-10-11] MEDS ORDERED: Enoxaparin 30 MG/0.3 ML Syringe SUBCUT SCH (20:00)
[2017-10-11] MEDS ORDERED: cefTRIAXone 1 GM Vial IVPUSH SCH (20:00)
[2017-10-11] MEDS: Sertraline 25 MG Tab PO SCH (20:21)
[2017-10-12] MEDS: Lactated Ringers 1,000 ML IV SCH (06:33)
[2017-10-12] MEDS: Pantoprazole 40 MG Vial IVPUSH SCH (06:33)
[2017-10-12] MEDS: Acetaminophen 325 MG Tab PO PRN (08:43)
[2017-10-12] MEDS: Ferrous Sulfate 324 MG Tab.EC PO SCH (08:44)
[2017-10-12] MEDS: LYSINE 500 MG PO SCH (08:44)
[2017-10-12] MEDS: Spironolactone 25 MG Tab PO SCH (08:44)
[2017-10-12] MEDS: Lisinopril 20 MG Tab PO SCH (08:44)
--- NOTE | 2017-10-12 09:52 | PCM.DCSUM1 ---
Discharge Summary - Discharge Data Discharge Date: 10/12/17 Discharge Disposition: Home, Self-Care 01 Condition: Fair - Discharge Diagnosis/Problem(s) (1) Mass of right lung SNOMED Code(s): 029858189 ICD Code: R91.8 - OTHER NONSPECIFIC ABNORMAL FINDING OF LUNG FIELD Status: Chronic Priority: High Current Visit: Yes (2) Anemia SNOMED Code(s): 593613896 ICD Code: D64.9 - ANEMIA, UNSPECIFIED Status: Chronic Current Visit: Yes Qualifiers: Anemia type: unspecified type Qualified Code(s): D64.9 - Anemia, unspecified (3) Renal insufficiency SNOMED Code(s): 823625340, 285286619 ICD Code: N28.9 - DISORDER OF KIDNEY AND URETER, UNSPECIFIED Status: Acute Current Visit: Yes (4) UTI (urinary tract infection) SNOMED Code(s): 76671888 ICD Code: N39.0 - URINARY TRACT INFECTION, SITE NOT SPECIFIED Status: Acute Current Visit: Yes Qualifiers: Urinary tract infection type: site unspecified Hematuria presence: without hematuria Qualified Code(s): N39.0 - Urinary tract infection, site not specified (5) Sepsis SNOMED Code(s): 69494467 ICD Code: A41.9 - SEPSIS, UNSPECIFIED ORGANISM Status: Acute Current Visit: Yes Qualifiers: Sepsis type: sepsis due to unspecified organism Qualified Code(s): A41.9 - Sepsis, unspecified organism - Discharge Plan Home Medications: Home Meds Lysine 1,000 mg PO DAILY 10/08/17 [History] Ramipril 10 mg PO DAILY 10/08/17 [History] Sertraline [Zoloft] 50 mg PO BEDTIME 10/08/17 [History] Spironolactone [Aldactone] 25 mg PO DAILY 10/08/17 [History] Forms: ED Department Discharge Referrals: Provider,Unknown [Ordering Only Provider] - - Patient Data Vitals - Most Recent: Last Vital Signs Temp 98.5 F 10/12/17 07:18 Pulse 86 10/12/17 07:18 Resp 19 10/12/17 07:18 BP 143/67 H 10/12/17 08:44 Pulse Ox 96 10/12/17 07:18 Weight - Most Recent: 120 lb 8 oz I&O - Last 24 hours: Intake & Output 10/11/17 10/12/17 10/12/17 22:59 06:59 14:59 Intake Total 1000 Balance 1000 IKE Results - Last 24 hrs: Microbiology 10/08/17 21:35 Aerobic Blood Culture - Final Blood - Venous Streptococcus Pneumoniae Anaerobic Blood Culture - Final Streptococcus Pneumoniae 10/08/17 21:40 Aerobic Blood Culture - Preliminary Blood - Venous - Lab Draw Anaerobic Blood Culture - Preliminary 10/08/17 22:04 Urine Culture - Final Urine, Clean Catch Med Orders - Current: Current Medications Acetaminophen (Tylenol) 650 mg PO Q4H PRN PRN Reason: Pain (Mild 1-3)/fever Last Admin: 10/12/17 08:43 Dose: 650 mg Albuterol/Ipratropium (Duoneb 3.0-0.5 Mg/3 Ml) 3 ml NEB Q4H PRN PRN Reason: Shortness Of Breath/wheezing Ceftriaxone Sodium (Rocephin) 1 gm IVPUSH DAILY@1999 [facility] Last Admin: 10/11/17 20:21 Dose: 1 gm Enoxaparin Sodium (Lovenox) 30 mg SUBCUT DAILY@1999 [facility] Last Admin: 10/11/17 20:20 Dose: 30 mg Ferrous Sulfate (Ferrous Sulfate) 324 mg PO WITHBREAKFAST [facility] Last Admin: 10/12/17 08:44 Dose: 324 mg Lactated Ringer's (Ringers, Lactated) 1,000 mls @ 75 mls/hr IV ASDIRECTED [facility] Last Admin: 10/12/17 06:33 Dose: 125 mls/hr Azithromycin 500 mg/ Sodium (Chloride) 250 mls @ 250 mls/hr IV DAILY@1999 [facility] Last Admin: 10/11/17 20:21 Dose: 250 mls/hr Lisinopril (Prinivil) 20 mg PO DAILY [facility] Last Admin: 10/12/17 08:44 Dose: 20 mg Magnesium Hydroxide (Milk Of Magnesia) 30 ml PO Q12H PRN PRN Reason: Constipation (Lysine [Lysine] (500mgOwn Med) 1,000 mg PO DAILY [facility] Last Admin: 10/12/17 08:44 Dose: 1,000 mg Pantoprazole Sodium (Protonix Iv) 40 mg IVPUSH ACBREAKFAST [facility] Last Admin: 10/12/17 06:33 Dose: 40 mg Sertraline HCl (Zoloft) 50 mg PO BEDTIME [facility] Last Admin: 10/11/17 20:21 Dose: 50 mg Spironolactone (Aldactone) 25 mg PO DAILY [facility] Last Admin: 10/12/17 08:44 Dose: 25 mg Temazepam (Restoril) 15 mg PO BEDTIME PRN PRN Reason: Sleep Discontinued Medications Ceftriaxone Sodium (Rocephin) 1 gm IVPUSH Q24H [facility] Last Admin: 10/11/17 00:30 Dose: 1 gm Enoxaparin Sodium (Lovenox) 30 mg SUBCUT Q24H [facility] Last Admin: 10/10/17 23:30 Dose: 30 mg Azithromycin 500 mg/ Sodium (Chloride) 250 mls @ 250 mls/hr IV Q24H [facility] Last Admin: 10/10/17 00:30 Dose: 250 mls/hr
== END 2017-10-12 11:35 | disposition home or self-care (01) | DRG 872 ==
LOC: CC.ED 21:15 → CC.MS 22:45 → UNDOADMIN 22:45 → CC.MS 22:59 → UNDOADMIN 23:06
PROVIDERS: ADMIT Nurse Practitioner Family; ATTEND Family Medicine
DX: A41.9 Sepsis, unspecified organism (principal); N39.0 Urinary tract infection, site not specified; I10 Essential (primary) hypertension; R91.8 Other nonspecific abnormal finding of lung field; R05 Cough; N28.9 Disorder of kidney and ureter, unspecified; D63.8 Anemia in other chronic diseases classified elsewhere; M46.92 Unspecified inflammatory spondylopathy, cervical region; Z88.0 Allergy status to penicillin; Z79.899 Other long term (current) drug therapy; Z90.5 Acquired absence of kidney; Z87.440 Personal history of urinary (tract) infections
CPT/HCPCS: 36415; 70450; 71046; 71250; 74176; 80048; 80053; 81001; 82607; 82728; 82746; 83540; 83550; 83605; 83735; 84484; 85025; 85379; 85651; 86140; 87040; 87077; 87086; 87804; 93005; 99284; A9270-GY; C9113; J0456; J0696; J1650; J7050; J7120

== ENCOUNTER 2018-05-26 10:46 | Observation (INO) | payer MEDICARE ==
[2018-05-26 11:25] LABS: CHLORIDE,CL 111 mEq/L (98-106); SODIUM,NA 146 mEq/L (136-145)
[2018-05-26] MEDS ORDERED: Acetaminophen 325 MG Tab PO PRN (15:02)
[2018-05-26] MEDS ORDERED: Temazepam 15 MG Cap PO PRN (15:02)
[2018-05-26] MEDS: Sodium Chloride 0.9% 1,000 ML IV SCH ×2 (15:25→23:22)
[2018-05-26] MEDS: Pantoprazole 40 MG Vial IVPUSH SCH (16:00)
[2018-05-27] MEDS: Pantoprazole 40 MG Vial IVPUSH SCH (07:27)
[2018-05-27] MEDS ORDERED: Lactated Ringers 1,000 ML IV SCH (07:30)
[2018-05-27] MEDS ORDERED: Pantoprazole 40 MG Vial IVPUSH SCH (11:00)
[2018-05-27] MEDS: SERTRALINE 25 MG PO SCH (11:06)
[2018-05-27] MEDS: amLODIPine 2.5 MG Tab PO SCH (11:11)
[2018-05-28] MEDS ORDERED: Pantoprazole 40 MG Vial IVPUSH SCH (07:00)
[2018-05-28] MEDS: SERTRALINE 25 MG PO SCH (07:50)
[2018-05-28] MEDS: amLODIPine 2.5 MG Tab PO SCH (07:50)
--- NOTE | 2018-05-30 09:53 | OR ---
DATE OF OPERATION: 05/27/2018 PREOPERATIVE DIAGNOSIS: DYSPEPSIA WITH WEIGHT LOSS. POSTOPERATIVE DIAGNOSIS: DYSPEPSIA WITH WEIGHT LOSS. SURGEON: Antonio Leach MD PROCEDURE: ESOPHAGOGASTRODUODENOSCOPY WITH BIOPSIES X2, ELIU. 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 COMPLICATIONS: None. SPECIMEN: 1. Antral biopsy x2. 2. ELIU. FINDINGS: 1. Full-length EGD. 2. Minimal antral gastritis with 2 small erosions. 3. Small hiatal hernia without esophagitis. 4. No signs of any bleeding sites, masses, or tumors. RECOMMENDATIONS: Ongoing medical followup. INDICATIONS: Ms. Izaguirre was admitted to the facility with weight loss. She had this ongoing now for many months and she is down about 25 pounds and complaining of epigastric pain and fullness. She does have known cholelithiasis, but really does not have a lot of postprandial abdominal pain. Exam showed her to have mid epigastric tenderness and we elected to proceed with EGD. DESCRIPTION OF PROCEDURE: The patient was prepped and draped, placed in the left lateral decubitus position. A lubricated Olympus gastroscope was inserted over a bit and advanced into the cricopharyngeus area, and easily intubated in the esophagus. The esophageal lining was benign in its entire course. The Z- line was crisp and sharp at 36 cm. Small hiatal hernia was present without any spontaneous GERD seen. There was no distal esophagitis, stricturing, ulceration, or Newton's changes. The scope was advanced into the stomach through the pylorus into the second portion of duodenum. This and the duodenal bulb were completely benign. The scope was brought back into the stomach and retroflexed. The upper fundus and cardia were unremarkable. Upon straightening, the rest of the fundus appeared benign. The antrum had some minimal changes of gastritis with few small erosions. Two biopsies were taken along with a CLOtest. Air was then suctioned and scope removed without complication. REJI/JAIME /[id number]
--- NOTE | 2018-05-30 09:54 | PN ---
DATE: 05/27/2018 S: Naila is feeling fine. She really does not have any complaints. Her blood pressures are up. EGD today showed no signs of any reason for her weight loss and dyspepsia. O: GENERAL: On exam, she is in her usual state. Pleasant and cooperative. NECK: Neck veins are flat. LUNGS: Clear. CARDIAC: Tones are regular. ABDOMEN: Remains soft with audible bowel sounds. Minimal epigastric and right upper quadrant pain to palpation. ASSESSMENT: 1. WEIGHT LOSS. 2. CHRONIC RENAL INSUFFICIENCY WITH ACUTE EXACERBATION. 3. HYPERTENSION. P: We are going to proceed with gallbladder ultrasound this morning. I am going to start her on Norvasc for blood pressure control. I had a long discussion with her and her family about etiology of her weight loss. She did have CT scans of the chest, abdomen, and pelvis back in this past summer which were negative and her pneumonia cleared nicely. Chest x-ray shows no abnormalities. At this point, we are going to see what her gallbladder ultrasound shows. Get her blood pressure control before we proceed with further diagnostic imaging including potentially repeating CT chest, abdomen, and pelvis. REJI/JAIME /[id number]
--- NOTE | 2018-05-30 10:02 | DISCH ---
ADMISSION DIAGNOSES: 1. Ipshg-bq-wivalip renal failure. 2. Anemia related to above. 3. Anorexia. 4. Hypertension. DISCHARGE DIAGNOSIS: 1. JYONT-TS-ARXPEGC RENAL FAILURE. 2. ANEMIA RELATED TO ABOVE. 3. ANOREXIA. 4. HYPERTENSION. HISTORY: The patient was seen in my office today on the day of admission for weight loss ongoing without any identifiable etiology. Six months prior, she has had CT scan of chest, abdomen, and pelvis without any finding of cause, and this is the first time I have seen her since then. She came back with a creatinine of 3.2 and her blood pressures were up slightly. We elected to put her into the hospital and scope her as she is having a lot of abdominal fullness with eating. HOSPITAL COURSE: The patient was admitted, routine lab work did show chronic anemia related to her renal failure. Workup in that regard including B12, folic acid, iron levels are pending. The morning after admission, we did an EGD which was essentially normal. CT scan unfortunately done with no contrast by local provider showed no gross abnormalities. We did stop her ISAAC inhibitor as her renal function is elevated and put her on Norvasc. Her blood pressures are better and we are continuing to monitor and titrate it as an outpatient. At this time, she appears comfortable going home. We are going to continue to workup her anemia as an outpatient and likely get her into Nephrology. She likely will need erythropoietin in the near future, waiting on a level. We will continue to monitor the weight loss, but right as of now, no other identifiable etiology is found. I will see her back in clinic next week for repeat panel 8. COMPLICATIONS: During her stay were none. CONSULTATIONS: None. PROCEDURES: EGD. DISPOSITION: Discharged home. REJI/JAIME /[id number]
== END 2018-05-28 11:00 | disposition home or self-care (01) ==
LOC: CC.FCMC 10:46 → CC.MS 10:46 → UNDOADMOB 13:00 → CC.MS 15:02
PROVIDERS: ADMIT Family Medicine; ATTEND Family Medicine
DX: R63.4 Abnormal weight loss (principal); R63.0 Anorexia; K29.50 Unspecified chronic gastritis without bleeding; I12.9 Hypertensive chronic kidney disease with stage 1 through stage 4 chronic kidney disease, or unspecified chronic kidney disease; D63.1 Anemia in chronic kidney disease; N18.9 Chronic kidney disease, unspecified; N17.9 Acute kidney failure, unspecified; Z79.899 Other long term (current) drug therapy; Z88.0 Allergy status to penicillin
CPT/HCPCS: 36415; 71046; 74176; 76705; 76770; 80048; 80053; 81001; 82270; 82607; 82668; 82728; 82746; 83540; 83550; 84443; 85025; 85651; 87081; 87086; 93005; 96361; 96374; 96376; A9270-GY; C9113; G0378; J7030; J7120